=== PATIENT | female | born 1975 | race African-American/Black ===

== ENCOUNTER 2018-01-26 08:49 | Outpatient (CLI) | payer BC ==
[2018-01-26] MEDS ORDERED: Gadobenate Dimeglumine 529 MG/1 ML (20ML VIAL) ONE (16:02)
== END 2018-01-26 08:50 | disposition home or self-care (01) ==
LOC: BICMRI 08:49
PROVIDERS: ATTEND Ophthalmology
DX: H47.10 Unspecified papilledema (principal)
CPT/HCPCS: 70553; A9579